=== PATIENT | female | born 2000 | race Caucasian/White ===

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

== ENCOUNTER 2021-05-12 15:33 | Emergency (ER) | payer OTHER, MEDICAID ==
[~2021-05-12 15:33] MED LIST changes: +FLEXERIL PO
== END 2021-05-12 16:04 | disposition left against medical advice (07) ==
LOC: M.ERS 15:33
DX: Z53.21 Procedure and treatment not carried out due to patient leaving prior to being seen by health care provider (principal)